=== PATIENT | female | born 1950 | race Caucasian/White ===

== ENCOUNTER → 2017-12-17 | Outpatient (CLI) | payer MEDICARE, OTHER ==
[~2017-12-17] MED LIST: CIPR-345 PO; EST42T PV; HYDR-4309 PO; LEVO25TA57 PO; METXR500 PO; PROM-110 PO; ROS10 PO; SIMV5TAB60 PO
--- NOTE | 2017-12-17 10:46 | EKG ---
FACILITY: [facility] PATIENT NAME: DEBO BETANCOURT : [id number] MR: [id number] V: [id number] EXAM DATE: ORDERING PHYSICIAN: DEBORAH CHRISTINA TECHNOLOGIST: SOFIA Larose Reason : WELCOME TO MEDICARE Blood Pressure : / mmHG Vent. Rate : 067 BPM Atrial Rate : 067 BPM P-R Int : 184 ms QRS Dur : 088 ms QT Int : 408 ms P-R-T Axes : 080 084 078 degrees QTc Int : 431 ms Normal sinus rhythm Normal ECG No previous ECGs available Confirmed by JOSE SAGE ([id number]) on 12/17/2017 11:55:00 AM Referred By: CARRI Confirmed By:JOSE SAGE
== END ==
LOC: RESP 10:35
PROVIDERS: ATTEND Nurse Practitioner Family
DX: Z00.00 Encounter for general adult medical examination without abnormal findings (principal)
CPT/HCPCS: 93005

== ENCOUNTER → 2018-02-06 | Outpatient (CLI) | payer MEDICARE, OTHER | LOC: RESP 19:49 | PROVIDERS: ATTEND Nurse Practitioner Family | DX: G47.30 Sleep apnea, unspecified (principal); G47.61 Periodic limb movement disorder; G47.36 Sleep related hypoventilation in conditions classified elsewhere; E66.3 Overweight ==

== ENCOUNTER → 2018-12-27 | Outpatient (CLI) | payer MEDICARE, OTHER ==
[~2018-12-27] MED LIST changes: -HYDR-4309 PO; +HYDR-653 PO; -SIMV5TAB60 PO; +SIMV5TAB69 PO
--- NOTE | 2018-12-27 09:56 | RADIOLOGY IMAGING REPORT ---
[place] [facility] [place]IENT NAME: Valarie Michaud : 1950 MR: [id number] V: [id number] EXAM DATE: ORDERING PHYSICIAN: DEBORAH CHRISTINA TECHNOLOGIST: Location: [facility] [place] Patient: Valarie Michaud : 1950 Visit/Account:[id number] Date of Sevice: 12/27/2018 DEXA Scan Clinical history: Surgical menopause. Comparison: DEXA scan from 06/08/2009. LUMBAR SPINE: The bone mineral density (BMD) measured from L1-L4 correlates with a Z-score of 2.3 and a T-score of 0.8 which is Normal as defined by the World Health Organization. The corresponding risk of fracture in the lumbar spine is Not increased compared with a young adult reference population. This value smith s increase by 5.4 % since the prior study. More than 5% change is considered significant. HIP: Bone mineral density (BMD) measured in the LEFT total hip region correlates with a Z-score 0.4 and a T-score of -0.8 which is normal as defined by the World Health Organization. The corresponding risk of fracture in the hip is 1-2 t imes increased compared to a young adult reference population. This value has increase by 2.7 % since the prior study. More than 5% change is considered significant. T score left femoral neck -1.2 Bone mineral density (BMD) measured in the Femoral Neck region measures 0.877 g/cm?. IMPRESSION: 1. Lumbar spine: Normal. There has been 5.4% increase in the bone mineral density since the previou s exam. 2. Left Total Hip: Normal. There has been 2.7% increase in the bone mineral density since the previ ous exam. 3. Femoral Neck: Bone Mineral Density is 0.877 g/cm? The next DEXA scan of this patient should include the following sites: L1-L4 and the left hip. FRAX? WHO Fracture Risk Assessment Tool link: <http://www.shef.ac.uk/FRAX/tool.jsp?locationValue=9> PLEASE NOTE: 1) The World Health Organization defines low BMD as follows: T-score Normal > -1 Osteopenia < -1 and > -2.5 Osteoporosis < -2.5 without fractures Established osteoporosis < -2.5 with fractures 2) In general, you may wish to consider: Diagnosis Treatment Follow-up DEXA Normal BMD Prevention 2-3 years Osteopenia Prevention/therapy 1-2 years Osteoporosis Therapy Yearly 3) Fracture risk estimated from the T-score is more accurate for vertebral fractures (often spontane ous) than for hip fractures. Report Dictated By: Elizabeth Zayas MD at 12/27/2018 9:37 AM Report E-Signed By: Elizabeth Zayas MD at 12/27/2018 9:52 AM WSN:[email or web address]
== END ==
LOC: RAD 06:58
PROVIDERS: ATTEND Nurse Practitioner Family
DX: E89.41 Symptomatic postprocedural ovarian failure (principal); Z78.0 Asymptomatic menopausal state
CPT/HCPCS: 77080